=== PATIENT | female | born 1945 | race Caucasian/White ===

== ENCOUNTER → 2017-12-17 14:51 | Outpatient (CLI) | payer MEDICARE, OTHER, SELFPAY ==
--- NOTE | 2017-12-17 | DI.RAD.S_ITS ---
PROCEDURE: XR KNEE RT 3V INDICATIONS: RIGHT KNEE PAIN TECHNIQUE: 3 views of the knee were acquired. COMPARISON: [facility], , KNEE 3V LEFT, 12/28/2016, 11:01. FINDINGS: Bones: No fractures or dislocations. No suspicious bony lesions. Previous right ACL reconstruction. Soft tissues: No joint effusion. No suspicious soft tissue calcifications. IMPRESSION: No acute fractures or dislocations. Previous right ACL reconstruction. Dictated by: Felice Raya M.D. on 12/17/2017 at 15:17 Approved by: Felice Raya M.D. on 12/17/2017 at 15:18
== END ==
PROVIDERS: PCP Physician Assistant; Visit Provider Physician Assistant
DX: M25.561 Pain in right knee (principal)
CPT/HCPCS: 73562

== ENCOUNTER → 2018-01-20 13:58 | Outpatient (CLI) | payer MEDICARE, OTHER, SELFPAY ==
--- NOTE | 2018-01-20 | DI.US.S_ITS ---
PROCEDURE: US THYROID INDICATIONS: THYROID NODULES TECHNIQUE: Real-time scanning was performed of the thyroid gland, with image documentation. COMPARISON: [facility], US, THYROID, 12/02/2016, 8:37. FINDINGS: Right: Thyroid lobe measures 4.2 x 1.3 x 1.3 cm, and is homogeneous in echotexture. Left: Thyroid lobe measures 4.0 x 1.6 x 1.2 cm, and is homogenous in echotexture. Isthmus: 3.0 mm thick. Nodule number: 1 Location: Left inferior Size: Unchanged at 0.8 x 0.5 x 0.4 cm. Composition: Solid Echogenicity: Hypoechoic Shape: wider than tall. Margins: Smooth Echogenic foci: Internal echogenic punctate foci. Total points: 7 ACR TI-RADS category: Highly suspicious Nodule number: 2 Location: Right inferior Size: Unchanged at 0.8 x 0.5 x 0.7 cm. Composition: Solid Echogenicity: Hypoechoic Shape: wider than tall. Margins: Smooth Echogenic foci: Internal echogenic punctate foci Total points: 7 ACR TI-RADS category: Highly suspicious IMPRESSION: Stable subcentimeter highly suspicious nodules. Fine needle aspiration is not.recommended at this time given the small size, although followup ultrasound is recommended as below. ACR TI-RADS definitions and recommendations: TI-RADS 1 (benign): 0 points. FNA not needed. TI-RADS 2 (not suspicious): 2 points. FNA not needed. TI-RADS 3 (mildly suspicious): 3 points. * FNA if 2.5 cm or larger, follow up if 1.5 cm or larger (at 1, 3, and 5 years). TI-RADS 4 (moderately suspicious): 4-6 points. * FNA if 1.5 cm or larger, follow up if 1 cm or larger (at 1, 2, 3, and 5 years). TI-RADS 5 (highly suspicious): 7 points or more. * FNA if 1 cm or larger, follow up if 0.5 cm or larger (every year for 5 years). Dictated by: Issa Silveira A Interpreted: Clare Looney MD on 01/20/2018 at 15:19 Approved by: Clare Looney MD, PhD on 01/20/2018 at 16:09
== END ==
PROVIDERS: PCP Physician Assistant; Visit Provider Physician Assistant
DX: E04.2 Nontoxic multinodular goiter (principal)
CPT/HCPCS: 76536

== ENCOUNTER → 2018-02-04 14:16 | Outpatient (CLI) | payer MEDICARE, OTHER, SELFPAY ==
--- NOTE | 2018-02-04 | DI.RAD.S_ITS ---
PROCEDURE: XR KNEE LT 3V INDICATIONS: PAIN IN LEFT KNEE TECHNIQUE: 3 views of the knee were acquired. COMPARISON: [facility], CR, XR KNEE RT 3V, 12/17/2017, 14:32. [facility], CR, KNEE 3V LEFT, 12/28/2016, 11:01. FINDINGS: Bones: No fractures or dislocations. No suspicious bony lesions. There is mild thinning of the medial compartment joint interspace, similar to that present previously on the right. Soft tissues: No effusion, no intra-articular loose body. IMPRESSION: Normal alignment, mild thinning of the joint width at the medial compartment. No effusion or trauma found. Dictated by: Markus Matias M.D. on 02/04/2018 at 15:18 Approved by: Markus Matias M.D. on 02/04/2018 at 15:19
== END ==
PROVIDERS: PCP Physician Assistant; Visit Provider Physician Assistant
DX: M25.562 Pain in left knee (principal)
CPT/HCPCS: 73562

== ENCOUNTER → 2018-02-19 13:05 | Outpatient (CLI) | payer MEDICARE, OTHER, SELFPAY | PROVIDERS: PCP Physician Assistant; Visit Provider Physician Assistant | DX: M85.851 Other specified disorders of bone density and structure, right thigh (principal); Z78.0 Asymptomatic menopausal state; E07.9 Disorder of thyroid, unspecified; Z82.62 Family history of osteoporosis | CPT/HCPCS: 77080 ==

== ENCOUNTER → 2018-03-12 12:54 | Outpatient (CLI) | payer MEDICARE, OTHER, SELFPAY ==
--- NOTE | 2018-03-12 | DI.MRI.S_ITS ---
PROCEDURE: MR KNEE LT WO CON INDICATIONS: INTERNAL DERANGEMENT OF LEFT KNEE TECHNIQUE: Noncontrast sagittal PD fast spin echo and T2 fast spin echo with fat saturation, sagittal 3-D FLASH with fat saturation; coronal T1 spin echo and PD fast spin echo with fat saturation, and axial PD fast spin echo with fat saturation through the knee. COMPARISON: None. FINDINGS: Image quality: Excellent. Menisci: Undersurface tear involving the body of the medial meniscus. The lateral meniscus appears intact Cruciate ligaments: The anterior and posterior cruciate ligaments appear intact. There are small adjacent periligamentous presumed ganglion cyst within the posterior aspect of the intercondylar notch Medial structures: The medial collateral ligament appears intact. The posterior oblique ligament, semimembranosus tendon insertions, oblique popliteal ligament, and meniscocapsular junction appear intact. Visualized portions of the pes anserinus tendons appear normal. No abnormal bursal fluid. Lateral structures: The lateral collateral ligament, long and short heads of the biceps femoris tendon appear intact. The popliteus tendon appears normal; the popliteofibular ligament appears intact. There is fluid in or adjacent to the popliteus bursa. The posterosuperior and anteroinferior popliteomeniscal fascicles appear intact. The arcuate and fabellofibular ligaments appear intact, on either side of the lateral inferior geniculate artery. Iliotibial band appears normal. Anterior structures: Mild thickening and intrasubstance signal change involving the distal quadriceps and proximal patellar tendons in keeping with low-grade tendinopathy. Patellar alignment is normal. No femoral trochlear dysplasia or ventral trochlear prominence. No edema in the infrapatellar fat pad. Bones and cartilage: No bone marrow contusions or fractures. Within the medial compartment, diffuse partial-thickness loss of the femoral cartilage and to a lesser extent the tibial cartilage. In the lateral compartment, intrasubstance signal change involving the central weightbearing tibial cartilage. Within the patellofemoral compartment, there is low-grade partial-thickness loss and surface fraying of the patellar cartilage. The femoral trochlear articular cartilage appears grossly preserved Joint space: There is physiologic knee joint fluid. No Horn's cyst. Multiloculated ganglion cyst involving the origin of the lateral gastrocnemius on image 21 series 9. IMPRESSION: Medial meniscus tear involving the body. Degenerative joint disease as above. Proximal patellar tendinopathy. Distal quadriceps tendinopathy. Scattered small subcentimeter resumed a ganglion cyst within the posterior aspect of the intercondylar notch. Prominent fluid within the deep infrapatellar bursa raising possibility of bursitis Dictated by: Toan Quach M.D. on 03/12/2018 at 14:42 Approved by: Toan Quach M.D. on 03/12/2018 at 14:51
== END ==
PROVIDERS: PCP Physician Assistant; Visit Provider Orthopaedic Surgery
DX: S83.242A Other tear of medial meniscus, current injury, left knee, initial encounter (principal); M17.12 Unilateral primary osteoarthritis, left knee; M67.462 Ganglion, left knee
CPT/HCPCS: 73721

== ENCOUNTER → 2018-09-09 12:55 | Outpatient (CLI) | payer MEDICARE, OTHER, SELFPAY ==
--- NOTE | 2018-09-09 | DI.RAD.S_ITS ---
PROCEDURE: XR CHEST 2V INDICATIONS: COUGH TECHNIQUE: 2 views of the chest were acquired. COMPARISON: [facility], , CHEST 2 VIEW, 07/22/2012, 10:04. FINDINGS: Surgical changes and devices: None. Lungs and pleura: Lungs are clear. No pleural effusions or pneumothorax. Mediastinum: Mediastinal contours are normal. Heart size is normal. Bones and chest wall: No suspicious bony abnormalities. Soft tissues appear unremarkable. IMPRESSION: Normal for age, source of current cough go symptoms is not seen. Dictated by: Markus Matias M.D. on 09/09/2018 at 13:47 Approved by: Markus Matias M.D. on 09/09/2018 at 13:47
== END ==
PROVIDERS: PCP Internal Medicine; Visit Provider Internal Medicine
DX: R05 Cough (principal)
CPT/HCPCS: 71046

== ENCOUNTER → 2018-12-28 15:57 | Outpatient (CLI) | payer MEDICARE, OTHER, SELFPAY ==
--- NOTE | 2018-12-28 | DI.MRI.S_ITS ---
PROCEDURE: MR ABDOMEN WO/W CON INDICATIONS: CYSTIC MASS OF PANCREAS TECHNIQUE: Coronal HASTE, axial 2D FLASH in- and [id number]; axial breath-hold T2 FSE with fat saturation from the hepatic dome to the iliac crests. Oblique coronal thin-slice and radial thick slab HASTE through the biliary system. Dynamic axial VIBE during administration of contrast. Post-contrast coronal VIBE or 2D FLASH with fat saturation from the hepatic dome to the iliac crests. Optional diffusion weighted imaging and ADC may be performed. COMPARISON: [facility], CT, CT ABDOMEN PELVIS WITH CONTRAST, 12/13/2018, 20:42. FINDINGS: Image quality: There is mild motion artifact. Pancreas and biliary system: Within the tail of the pancreas, there is a small thin-walled cystic lesion measuring up to 0.6 cm. There is no definite corresponding enhancement following contrast administration. There is a small linear cystic structure within the uncinate process adjacent to the pancreatic duct measuring approximately 0.6 cm in length by 0.2 cm in width. The main pancreatic duct is normal in caliber. No peripancreatic fat stranding or fluid collections no discrete pancreatic mass identified. Solid organs: There are multiple scattered hepatic cysts, the largest measuring up to 2.5 cm. No suspicious hepatic mass lesions. There is biliary sludge in the gallbladder without discrete gallstones or gallbladder wall thickening. No intrahepatic biliary ductal dilatation. The extrahepatic duct is at the upper limits of normal measuring up to 7 mm. No filling defects in the common bile duct to suggest choledocholithiasis. Spleen is normal in size and enhancement. No adrenal nodules. Kidneys demonstrate no hydronephrosis. There are bilateral renal cysts demonstrated including parapelvic cysts on the left. Nodes and vessels: No retroperitoneal or mesenteric adenopathy by size criteria. Aorta and inferior vena cava are normal in size. Bowel and peritoneum: Visualized bowel loops are normal in caliber throughout. No free fluid. Lung bases: No basal pleural effusions. Heart size is borderline enlarged. Bones and soft tissues: No ventral hernias. Bone marrow is normal in overall signal. IMPRESSION: 1. Small cystic lesion within the tail of the pancreas measuring up to 0.6 cm and demonstrates no solid internal components or suspicious internal enhancement. 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 A followup study may be performed in 12 months to demonstrate stability if clinically indicated. 2. Small linear cystic lesion in the uncinate process of the pancreas suggestive of a sidebranch IPMN. Followup is also recommended in 12 months to demonstrate stability. 3. Multiple hepatic cysts. 4. Biliary sludge in the gallbladder without evidence of gallstones. Dictated by: Ramesh Ledbetter M.D. on 12/29/2018 at 11:24 Approved by: Ramesh Ledbetter M.D. on 12/29/2018 at 12:06
== END ==
PROVIDERS: PCP Internal Medicine; Visit Provider Internal Medicine
DX: K86.2 Cyst of pancreas (principal); K76.89 Other specified diseases of liver
CPT/HCPCS: 74183; A9579

== ENCOUNTER → 2019-10-01 15:10 | Outpatient (CLI) | payer MEDICARE, OTHER, SELFPAY ==
[2019-10-01 15:33] LABS: RBC Urine None Seen (0-5/HPF)
[2019-10-01 16:34] LABS: Hematocrit 39.6 % (36-46); Hemoglobin 12.9 g/dL (12.0-16.0); Mean Corpuscular HGB Conc 32.6 % (30-36); Mean Corpuscular Hemoglobin 29.3 PG (26-34); Mean Corpuscular Volume 90.1 fL (80-100); Platelet Count 264 X10^3/uL (150-400); Red Blood Cell Count 4.39 X10^6/uL (4.0-5.2); Red Cell Distribution Width 14.4 % (11.6-14.8); White Blood Cell Count 6.4 X10^3/uL (4.5-11.0)
[2019-10-01 16:48] LABS: Alanine Aminotransferase 15 IU/L (<35); Albumin 4.6 g/dL (3.5-5.0); Albumin Globulin Ratio 1.6 (1.0-2.8); Alkaline Phosphatase 63 U/L (38-126); Aspartate Aminotransferase 25 IU/L (14-36); BUN Creatinine Ratio 31.9 (6-22); Bilirubin Total 0.3 mg/dL (0.2-1.3); Blood Urea Nitrogen 22 mg/dL (7-17); Carbon Dioxide 27 mmol/L (22-32); Chloride 105 mmol/L (98-107); Estimated Glomerular Filt Rate > 60.0 mL/min (>60); Globulin 2.9 g/dL (1.7-4.1); Glucose 91 mg/dL (80-110); HEMOLYSIS < 15 (0-50); Potassium 3.7 mmol/L (3.4-5.1); Sodium 140 mmol/L (137-145); Total Protein 7.5 g/dL (6.3-8.2)
[2019-10-01 17:08] LABS: Bilirubin Urine UA NEGATIVE (NEGATIVE); Color Urine UA YELLOW; Glucose Urine UA NEGATIVE (Negative); Ketones Urine UA NEGATIVE (NEGATIVE); Leukocyte Esterase Urine UA 1+ (NEGATIVE); Nitrite Urine UA NEGATIVE (Negative); Occult Blood Urine UA NEGATIVE (Negative); Protein Urine UA NEGATIVE (Negative); Urobilinogen Urine UA 0.2 E.U./dL (0.2)
[2019-10-01 17:12] LABS: Neutrophils Absolute Manual 4608 /uL (3000-5900); RBC Morphology Normal Morphology; Total Cells Counted 100
[2019-10-01 17:13] LABS: Appearance Urine UA Slightly Cloudy; pH Urine UA 5.5 (4.5-8.0)
[2019-10-01 17:21] LABS: Ferritin 15 ng/mL (11-264)
[2019-10-01 17:22] LABS: Bacteria Urine Occasional (0-1); Culture Indicated Urine Specimen Cultured; Squamous Epithelial Cell Urine 0-1 /HPF (0-5/HPF); WBC Urine 5-10/HPF (0-5/HPF)
[2019-10-01 17:36] LABS: TSH w/ Reflex to FT4 0.92 uIU/mL (0.47-4.68)
== END ==
PROVIDERS: PCP Internal Medicine; Referring Provider Internal Medicine; Visit Provider Internal Medicine
DX: Z86.2 Personal history of diseases of the blood and blood-forming organs and certain disorders involving the immune mechanism (principal); E03.9 Hypothyroidism, unspecified; I10 Essential (primary) hypertension
CPT/HCPCS: 36415; 80053; 81001; 82728; 84443; 85025; 85045; 87086

== ENCOUNTER → 2019-10-11 13:07 | Outpatient (CLI) | payer MEDICARE, OTHER, SELFPAY ==
--- NOTE | 2019-10-11 | DI.MRI.S_ITS ---
PROCEDURE: MR LUMBAR SPINE WO CON INDICATIONS: Lumbago with sciatica, right side TECHNIQUE: Noncontrast sagittal T1 spin echo and T2 fast echo, sagittal STIR, axial T1 and T2 fast spin echo through the lumbar spine. In cases with scoliosis, additional coronal T2 fast spin echo may be performed. COMPARISON: [facility] [place], CR, XR LUMBAR SPINE 2 OR 3 VIEWS, 10/07/2019, 11:37. FINDINGS: Image quality: Excellent. Alignment and Curvature: Trace degenerative anterolisthesis of L4 on L5. Trace degenerative retrolisthesis of L1 on L2. Very minimal degenerative levocurvature centered at L2-L3. He Bone Marrow: Marrow is of normal overall signal. No acute vertebral body compression fractures. Spinal Cord: Conus medullaris terminates at the L1-L2 level. Visualized cord demonstrates normal signal and size. Paraspinous Soft Tissues: No paravertebral masses. T12-L1: Mild disc height loss. Mild disc bulge. Mild facet hypertrophy. No canal stenosis. Moderate bilateral foraminal narrowing with flattening deformity of the exiting bilateral T12 nerve roots. L1-L2: Mild disc height loss. Mild disc bulge. Facet ligament hypertrophy. Mild canal stenosis. Moderate right foraminal narrowing with flattening deformity on the exiting right L1 nerve root. Mild left foraminal narrowing. L2-L3: Mild disc height loss. Mild disc bulge. Facet and ligament hypertrophy to, prominent on the right.. Mild canal stenosis. Mild to moderate right foraminal narrowing with mild flattening deformity on the exiting right L2 nerve root. L3-L4: Mild disc bulge. Facet and ligament hypertrophy. Mild to moderate canal stenosis. Moderate right foraminal narrowing and mild to moderate left foraminal narrowing with flattening deformity of the exiting bilateral L3 nerve roots. L4-L5: This disc bulge. Mild anterolisthesis of L4 on L5. Bilateral prominent facet hypertrophy, right greater than left. Mild canal stenosis. Mild to moderate bilateral foraminal narrowing with flattening deformity on the exiting bilateral L4 nerve roots. L5-S1: Chronic disc height loss. Mild disc bulge. Facet and ligament hypertrophy. Mild canal stenosis. Mild to moderate right foraminal narrowing and moderate left foraminal narrowing with flattening deformity of the exiting bilateral L5 nerve roots. IMPRESSION: 1. Diffuse degenerative change. Multilevel prominent facet arthropathy. 2. Multilevel, multifactorial canal stenosis, mild at L1-L2 and L2-L3, mild to moderate at L3-L4, and mild at L4-L5 and L5-S1. 3. Multilevel foraminal narrowing as described above. Dictated by: Jaylan Sales M.D. on 10/12/2019 at 8:48 Approved by: Jaylan Sales M.D. on 10/12/2019 at 9:12
== END ==
PROVIDERS: PCP Internal Medicine; Referring Provider Internal Medicine; Visit Provider Orthopaedic Surgery
DX: M54.41 Lumbago with sciatica, right side (principal); M47.816 Spondylosis without myelopathy or radiculopathy, lumbar region; M47.817 Spondylosis without myelopathy or radiculopathy, lumbosacral region; M48.061 Spinal stenosis, lumbar region without neurogenic claudication; M48.07 Spinal stenosis, lumbosacral region
CPT/HCPCS: 72148

== ENCOUNTER → 2020-12-18 14:42 | Outpatient (CLI) | payer MEDICARE, OTHER, SELFPAY ==
--- NOTE | 2020-12-18 14:46 | DI.US.S_ITS ---
PROCEDURE: US THYROID INDICATIONS: THYROID NODULE TECHNIQUE: Real-time scanning was performed of the thyroid gland, with image documentation. COMPARISON: [facility], US, US THYROID, 01/20/2018, 14:44. FINDINGS: Right: Thyroid lobe measures 4.7 x 1.3 x 1.4 cm, and is diffusely heterogeneous in echotexture. Left: Thyroid lobe measures 4.2 x 1.2 x 1.2 cm, and is diffusely heterogeneous in echotexture. Isthmus: 2.1 mm thick. Nodule number: 1 Location: Right inferior posterior Size: 0.6 x 0.4 x 0.3 cm. Composition: Predominantly solid Echogenicity: Hypoechoic Shape: wider than tall. Margins: Smooth Echogenic foci: None Total points: 4 ACR TI-RADS category: Moderately suspicious Nodule number: 2 Location: Right inferior anterior Size: Stable at 0.9 x 0.6 x 0.6 cm. Composition: Predominantly solid Echogenicity: Predominantly isoechoic Shape: wider than tall. Margins: Smooth Echogenic foci: None Total points: 3 ACR TI-RADS category: Mildly suspicious Nodule number: 3 Location: Left inferior medial Size: 0.5 x 0.4 x 0.2 cm. Composition: Complex cystic and solid Echogenicity: Hypoechoic Shape: wider than tall. Margins: Smooth Echogenic foci: None Total points: 3 ACR TI-RADS category: Mildly suspicious Nodule number: 4 Location: Left inferior to mid Size: Stable at 0.7 x 0.7 x 0.4 cm. Composition: Predominantly solid Echogenicity: Predominantly hypoechoic Shape: wider than tall. Margins: Smooth Echogenic foci: Internal echogenic punctate foci Total points: 7 ACR TI-RADS category: Highly suspicious IMPRESSION: 2 new sub cm thyroid nodules and otherwise stable appearance of the previously visualized nodules. Recommend continued followup ultrasound as detailed below. ACR TI-RADS definitions and recommendations: TI-RADS 1 (benign): 0 points. FNA not needed. TI-RADS 2 (not suspicious): 2 points. FNA not needed. TI-RADS 3 (mildly suspicious): 3 points. * FNA if 2.5 cm or larger, follow up if 1.5 cm or larger (at 1, 3, and 5 years). TI-RADS 4 (moderately suspicious): 4-6 points. * FNA if 1.5 cm or larger, follow up if 1 cm or larger (at 1, 2, 3, and 5 years). TI-RADS 5 (highly suspicious): 7 points or more. * FNA if 1 cm or larger, follow up if 0.5 cm or larger (every year for 5 years). Dictated by: Issa Silveira RRA Interpreted: Rory Rose MD on 12/19/2020 at 9:24 Transcribed by: MERRILL on 12/19/2020 at 9:30 Approved by: Navin Rose M.D. on 12/26/2020 at 11:19
== END ==
PROVIDERS: PCP Internal Medicine; Referring Provider Internal Medicine; Visit Provider Internal Medicine
DX: E04.2 Nontoxic multinodular goiter (principal)
CPT/HCPCS: 76536

== ENCOUNTER 2021-01-26 10:05 | Emergency (ER) | payer MEDICARE, OTHER, SELFPAY ==
[2021-01-26 11:14] VITALS: BP 145/70; PULSE 69; RESP 16; TEMP 36.6; O2SAT 97; BMI 25.0
--- NOTE | 2021-01-26 12:10 | ED.EXTPRO ---
HPI - Extremity Problem <Issa Costa PA-C - Last Filed: 01/26/21 19:28> General Chief complaint: Extremity Problem,Nontraumatic Stated complaint: possible blood clot/sent by [facility] Time Seen by Provider: 01/26/21 12:06 Source: patient Mode of arrival: Ambulatory Limitations: no limitations History of Present Illness HPI Narrative: Alice presents today with chief complaint of left leg pain that has waxed and waned over the last week. Her primary concern is for a blood clot. She reports that she plays pickleball and is able to play few matches without any significant difficulty. However, if she goes for her regular 3 mi walk she starts to have discomfort on her anterior thigh. She states that her had a blood clot a few years ago and she is concerned that she may have 1 now. Her pain started about 1 week ago when she was bending her leg after a pickle ball game. She had sharp pain near her knee and had difficulty straightening her leg. She reports that she laid down for about 2 hours and the pain went away. Few days later she had pain on her anterior thigh after some exertion. This gets better with rest. She denies any recent surgery, prolonged immobilization, history of cancer, recent hospitalization, history of blood clots, leg swelling, skin changes or any other acute concerns or complaints at this time. Related Data Home Medications Medication Instructions Recorded Confirmed thyroid (pork) 60 mg tablet 60 mg PO QDAY #0 12/28/16 ([place] Thyroid) cholecalciferol (vitamin D3) 125 5,000 unit PO QDAY #0 08/12/17 mcg (5,000 unit) capsule cyanocobalamin (vitamin B-12) 1,000 mcg PO QDAY #0 08/12/17 1,000 mcg tablet,extended release cyclobenzaprine 5 mg tablet 5 mg PO Q12HP PRN #0 08/12/17 multivitamin (Multiple Vitamins) 1 tab PO QDAY #0 08/12/17 omeprazole magnesium 20 mg 20 mg PO QDAY #0 08/12/17 tablet,delayed release (Prilosec OTC) vitamin E 400 unit capsule 400 unit PO QDAY #0 08/12/17 Allergies Allergy/AdvReac Type Severity Reaction Status Date / Time Penicillins [PENICILLINS] Allergy Unknown Verified 01/26/21 10:52 Review of Systems <Issa Costa PA-C - Last Filed: 01/26/21 19:28> Review of Systems Narrative: As per HPI Patient History <Issa Costa PA-C - Last Filed: 01/26/21 19:28> Social History Smoking Status: Never smoker Smoking Status: Never smoker alcohol intake frequency: a few times a week Substance Use Type: does not use Exam <Issa Costa PA-C - Last Filed: 01/26/21 19:28> Narrative Exam Narrative: Exam Narrative: Const General: cooperative, healthy appearing, comfortable, no acute distress, well developed and well groomed Nutritional Appearance: average body habitus Orientation: alert and oriented x3 HENMT Head: normal to inspection and atraumatic Ears: hearing grossly normal bilaterally Nose: external nose normal and nares normal Face and sinus: normal facial exam Neck Neck: normal visual inspection and supple Resp Effort & Inspection: normal respiratory effort, able to speak in complete sentences, no audible wheezes, not labored, no nasal flaring and no respiratory distress Neuro General: alert, oriented x3, gait normal, tone normal and moves all extremities Cognition: normal cognition Speech: speech normal Gait: normal gait Extremities Lower extremities are grossly normal. No significant edema, tenderness, decreased range of motion, joint effusion, bruising, or any other acute concerns or complaints at this time. Psych Appearance: grossly normal and well kempt Mental Status: mental status grossly normal Speech and Movement: speech and movement normal Mood: congruent mood Affect: normal affect Initial Vital Signs Initial Vital Signs: Vital Signs Temperature 97.9 F 01/26/21 11:14 Pulse Rate 69 01/26/21 11:14 Respiratory Rate 16 01/26/21 11:14 Blood Pressure 145/70 H 01/26/21 11:14 Pulse Oximetry 97 01/26/21 11:14 <Anika Post DO - Last Filed: 01/31/21 07:30> Initial Vital Signs Initial Vital Signs: Vital Signs Temperature 97.9 F 01/26/21 11:14 Pulse Rate 69 01/26/21 11:14 Respiratory Rate 16 01/26/21 11:14 Blood Pressure 145/70 H 01/26/21 11:14 Pulse Oximetry 97 01/26/21 11:14 Course <Issa Costa PA-C - Last Filed: 01/26/21 19:28> Orders Ordered: ED Orders 01/26/21 12:30 D Dimer Stat Vital Signs Vital signs: Vital Signs - 8 hr 01/26/21 12:36 01/26/21 13:00 01/26/21 13:01 Pulse Rate 70 73 71 Blood Pressure 148/78 H 162/75 H Pulse Oximetry 97 95 96 <Anika Post DO - Last Filed: 01/31/21 07:30> Orders Ordered: ED Orders 01/26/21 12:30 D Dimer Stat Vital Signs Vital signs: Vital Signs - 8 hr 01/26/21 12:36 01/26/21 13:00 01/26/21 13:01 Pulse Rate 70 73 71 Blood Pressure 148/78 H 162/75 H Pulse Oximetry 97 95 96 MDM - Extremity (Nontraumatic) <Issa Costa PA-C - Last Filed: 01/26/21 19:28> Lab Data Labs: Lab Results 01/26/21 Range/Units 12:30 D-Dimer < 200 (<230) ng/mL MDM Narrative Medical decision making narrative: Patients physical examination is reassuring at this time. She does not have any significant reproducible symptoms. She has a normal D-Dimer. I suspect that this is a muscle strain and recommend that we treat it as such. Strict ED return precautions discussed with the patient and her . They verbalized understanding and agreement to the plan and have no further concerns at this time. <Anika Post DO - Last Filed: 01/31/21 07:30> Lab Data Labs: Lab Results 01/26/21 Range/Units 12:30 D-Dimer < 200 (<230) ng/mL Discharge Plan Departure Patient Disposition: Home Clinical Impression: Leg pain Qualifiers: Laterality: left Qualified Code(s): M79.605 - Pain in left leg Activity Restrictions/Additional Instructions: It was very nice to meet you this afternoon. Your evaluation today has been reassuring. I suspect that your leg pain is due to muscle strain. Recommend doing a regular stretching routine to augment your other exercises that you do. If your discomfort continues to occur, please follow-up with your PCP or return here for re-evaluation. Thank you Issa Costa PA-C Prescriptions: No Action thyroid (pork) [[place] Thyroid] 60 MG tablet 60 mg PO QDAY Qty: 0 RF: 0 cyclobenzaprine 5 MG tablet 5 mg PO Q12HP PRNQty: 0 RF: 0 multivitamin [Multiple Vitamins] 1 EACH tablet 1 tab PO QDAY Qty: 0 RF: 0 omeprazole magnesium [Prilosec OTC] 20 MG tablet,delayed release (DR/EC) 20 mg PO QDAY Qty: 0 RF: 0 cyanocobalamin (vitamin B-12) 1,000 MCG tablet extended release 1,000 mcg PO QDAY Qty: 0 RF: 0 cholecalciferol (vitamin D3) 5,000 UNIT capsule 5,000 unit PO QDAY Qty: 0 RF: 0 vitamin E 400 UNIT capsule 400 unit PO QDAY Qty: 0 RF: 0 Referrals: Papo Mead MD [Primary Care Provider] - <Anika Post DO - Last Filed: 01/31/21 07:30> Cosign ED Attending Cosignature Attestation: I was immediately available in the department for consultation. Documentation has been reviewed.
[2021-01-26 12:36] VITALS: BP 148/78; PULSE 70; O2SAT 97
[2021-01-26 12:47] LABS: D Dimer < 200 ng/mL (<230)
[2021-01-26 13:00] VITALS: PULSE 73; O2SAT 95
[2021-01-26 13:01] VITALS: BP 162/75; PULSE 71; O2SAT 96
== END 2021-01-26 13:09 | disposition home or self-care (01) ==
PROVIDERS: Emergency Provider Physician Assistant; PCP Internal Medicine
DX: M79.605 Pain in left leg (principal)
CPT/HCPCS: 36415; 85379; 99283

== ENCOUNTER 2023-12-05 05:28 | Emergency (ER) | payer MEDICARE, OTHER, SELFPAY ==
[2023-12-05] VITALS (7 sets, daily range): BP systolic 131–184; BP diastolic 63–79; PULSE 67–93; RESP 16–95; TEMP 36.6; O2SAT 92–96; BMI 25.7
--- NOTE | 2023-12-05 06:20 | ED_ITS ---
HPI - URI/Sore Throat General Chief Complaint: Upper Respiratory Symptoms Stated Complaint: green stuff in nose she cant get rid of Time Seen by Provider: 12/05/23 06:02 Source: patient Mode of arrival: Ambulatory History of Present Illness HPI Narrative: Patient is a 70-year-old female history of hypertension hypothyroid presenting today with upper respiratory like symptoms. She reports she has had extreme fatigue and tiredness ongoing for about 1 week she had a mild sore throat but that has gone. She now complains of significant nasal drainage that she reports is green. She denies any sort of fever. She has been taking Mucinex and Tessalon Perles along with DayQuil NyQuil seems to be helping. Although at registration she had a coughing fit. Related Data Home Medications Medication Instructions Recorded Confirmed thyroid (pork) 60 mg tablet 60 mg PO QDAY ##0 12/28/16 ([place] Thyroid) cholecalciferol (vitamin D3) 125 5,000 unit PO QDAY ##0 08/12/17 mcg (5,000 unit) capsule cyanocobalamin (vitamin B-12) 1,000 mcg PO QDAY ##0 08/12/17 1,000 mcg tablet,extended release cyclobenzaprine 5 mg tablet 5 mg PO Q12HP PRN ##0 08/12/17 multivitamin (Multiple Vitamins 1 tab PO QDAY ##0 08/12/17 tablet) omeprazole magnesium 20 mg 20 mg PO QDAY ##0 08/12/17 tablet,delayed release (Prilosec OTC) vitamin E 268 mg (400 unit) capsule 400 unit PO QDAY ##0 08/12/17 Allergies Allergy/AdvReac Type Severity Reaction Status Date / Time Penicillins [PENICILLINS] Allergy Unknown Verified 01/26/21 10:52 Patient History Medical History Hearing loss Allergies Depression Whooping cough (~2006) Mumps Chicken pox Tinnitus Fibroids Ulcer (~2017) Colon polyps Hyperthyroidism (~2004) Hypertension (~2009) Surgical History Anesthesia History of knee surgery (~2000) History of hysterectomy (~1989) Family History Father Drowned Mother Cancer Hypertension Brother History of heart disease Grandfather History of heart disease Social History Smoking Status: Never smoker Smoking Status: Never smoker alcohol intake frequency: a few times a week Substance Use Type: does not use Exam Initial Vital Signs Initial Vital Signs: Vital Signs Pulse Rate 93 H 12/05/23 05:35 Respiratory Rate 95 H 12/05/23 05:35 Blood Pressure 184/79 H 12/05/23 05:35 Oxygen Delivery Method Room Air 12/05/23 05:35 GENERAL: Patient is a 78-year-old female HEENT: Head atraumatic,EOMI, pupils reactive, face symmetric, moist mucous membranes PHARYNX: No significant erythema swelling or drainage CARDIOVASCULAR: Regular rate and rhythm without murmurs, rubs or gallops. RESPIRATORY: Breath sounds equal bilaterally, no wheezes rales or rhonchi. EXTREMITIES: Normal range of motion, no clubbing or edema. Neurovascularly intact NEUROLOGICAL: Alert and oriented x4.Normal gait and speech. SKIN: Warm, dry, no laceration, no petechiae, no rashes or lesions. Course Orders Ordered: ED Orders 12/05/23 05:38 Respiratory Panel (Film Array) Stat Vital Signs Vital signs: Vital Signs - 8 hr 12/05/23 05:35 12/05/23 05:41 12/05/23 06:40 Temperature 97.8 F Pulse Rate 93 H 91 H 78 Respiratory Rate 95 H 16 Blood Pressure 184/79 H 184/79 H Pulse Oximetry 96 95 Oxygen Delivery Method Room Air Room Air 12/05/23 06:56 12/05/23 06:57 12/05/23 07:00 Temperature Pulse Rate 76 74 Respiratory Rate 18 18 Blood Pressure 131/66 131/63 137/65 Pulse Oximetry 92 93 Oxygen Delivery Method Room Air 12/05/23 07:00 12/05/23 07:30 12/05/23 07:30 Temperature Pulse Rate 67 82 Respiratory Rate Blood Pressure 133/64 Pulse Oximetry 92 94 Oxygen Delivery Method MDM - URI/Sore Throat Lab Data Labs: Lab Results 12/05/23 Range/Units 05:38 Chlamy pneumoniae PCR Not detected (Not Detect) Adenovirus (PCR) Not detected (Not Detect) B.parapertussis DNA PCR Not detected (Not Detecte) Coronavirus OC43 (PCR) Not detected (Not Detect) Coronavirus HKU1 (PCR) Not detected (Not Detect) Coronavirus 229E (PCR) Not detected (Not Detect) SARS-CoV-2 (PCR) Not detected (Not Detecte) Coronavirus NL63 (PCR) Not detected (Not Detect) Human Metapneumovir PCR Not detected (Not Detect) Influenza Type A (PCR) Not detected (Not Detect) Influenza Type B (PCR) Not detected (Not Detect) M. pneumoniae (PCR) Not detected (Not Detect) Parainfluenza 1 (PCR) Not detected (Not Detect) Parainfluenza 2 (PCR) Not detected (Not Detect) Parainfluenza 3 (PCR) Not detected (Not Detect) Parainfluenza 4 (PCR) Not detected (Not Detect) RSV (PCR) Not detected (Not Detect) Entero/Rhino (PCR) Detected H (Not Detect) MDM Narrative Medical decision making narrative: Patient is 78-year-old female presenting today with upper respiratory like symptoms ongoing for couple of days. She overall appears well does not meet sepsis criteria. Respiratory panel pending Patient signed out to Dr. Post Discharge Plan Departure Patient Disposition: Home Clinical Impression: Upper respiratory infection Activity Restrictions/Additional Instructions: You have tested positive for entero/rhinovirus. This is a viral illness typically take 7-10 days to resolve. You can take [id number] medications as needed. Please return for new chest pain or shortness of breath, lightheadedness or passing out, persistent vomiting, new swelling of your extremities or other new or concerning changes. Prescriptions: No Action thyroid (pork) [[place] Thyroid] 60 MG tablet 60 mg PO QDAY Qty: 0 cyclobenzaprine 5 MG tablet 5 mg PO Q12HP PRNQty: 0 multivitamin [Multiple Vitamins] 1 EACH tablet 1 tab PO QDAY Qty: 0 omeprazole magnesium [Prilosec OTC] 20 MG tablet,delayed release (DR/EC) 20 mg PO QDAY Qty: 0 cyanocobalamin (vitamin B-12) 1,000 MCG tablet extended release 1,000 mcg PO QDAY Qty: 0 cholecalciferol (vitamin D3) 5,000 UNIT capsule 5,000 unit PO QDAY Qty: 0 vitamin E 400 UNIT capsule 400 unit PO QDAY Qty: 0 Referrals: Papo Mead MD [Primary Care Provider] - Stand Alone Forms: Patient Portal/API
[2023-12-05 07:01] LABS: Adenovirus Not Detected (Not Detect); B. parapertussis Not Detected (Not Detecte); Bordetella pertussis Not Detected (Not Detect); Chlamydophila pneumoniae Not Detected (Not Detect); Coronavirus 229E Not Detected (Not Detect); Coronavirus HKU1 Not Detected (Not Detect); Coronavirus NL 63 Not Detected (Not Detect); Coronavirus OC43 Not Detected (Not Detect); Human Metapneumovirus Not Detected (Not Detect); Human Rhinovirus/Enterovirus Detected (Not Detect); Influenza A Not Detected (Not Detect); Influenza B Not Detected (Not Detect); Mycoplasma pneumoniae Not Detected (Not Detect); Parainfluenza Virus 1 Not Detected (Not Detect); Parainfluenza Virus 2 Not Detected (Not Detect); Parainfluenza Virus 3 Not Detected (Not Detect); Parainfluenza Virus 4 Not Detected (Not Detect); Respiratory Syncytial Virus Not Detected (Not Detect); SARS- CoV-2 Not Detected (Not Detecte)
--- NOTE | 2023-12-05 07:37 | PC.NURSE ---
Pt states she is having a difficulty time coughing up sputum; pt was concerned she might need antibiotics.
--- NOTE | 2023-12-05 07:46 | PC.NURSE ---
Refusal of urine sample from the pt.
== END 2023-12-05 07:53 | disposition home or self-care (01) ==
PROVIDERS: Emergency Medicine; Emergency Provider Emergency Medicine; PCP Internal Medicine
DX: J06.9 Acute upper respiratory infection, unspecified (principal)
CPT/HCPCS: 87633; 99281; 99282

== ENCOUNTER → 2024-11-30 15:26 | Outpatient (CLI) | payer MEDICARE, OTHER, SELFPAY ==
[2024-11-30 17:19] LABS: Hematocrit 39.6 % (36-46); Hemoglobin 13.5 g/dL (12.0-16.0); Mean Corpuscular HGB Conc 34.1 % (30-36); Mean Corpuscular Hemoglobin 31.5 PG (26-34); Mean Corpuscular Volume 92.6 fL (80-100); Platelet Count 262 X10^3/uL (150-400)
[2024-11-30 18:27] LABS: Alanine Aminotransferase 17 IU/L (<35); Albumin 4.7 g/dL (3.5-5.0); Albumin Globulin Ratio 2.0 (1.0-2.8); Alkaline Phosphatase 73 U/L (38-126); Blood Urea Nitrogen 23 mg/dL (7-17); Calcium 9.9 mg/dL (8.4-10.2); Carbon Dioxide 27 mmol/L (22-32); Chloride 106 mmol/L (98-107); Cholesterol 229 mg/dL (140-199); Estimated Glomerular Filt Rate > 60 mL/min (>60); Globulin 2.3 g/dL (1.7-4.1); Glucose 83 mg/dL (70-99); HDL Cholesterol 90 mg/dL (40-60); HEMOLYSIS < 15 (0-50); Potassium 4.1 mmol/L (3.4-5.1); Sodium 140 mmol/L (137-145); Total Protein 7.0 g/dL (6.3-8.2); Triglycerides 109 mg/dL (35-150)
[2024-11-30 18:52] LABS: TSH w/ Reflex to FT4 0.90 uIU/mL (0.47-4.68)
[2024-12-02 06:39] LABS: Cancer (Carbohydrate) Ag 19-9 6 U/mL (0-35)
== END ==
PROVIDERS: PCP Internal Medicine; Referring Provider Internal Medicine; Visit Provider Internal Medicine
DX: E04.1 Nontoxic single thyroid nodule (principal); E03.9 Hypothyroidism, unspecified; D49.0 Neoplasm of unspecified behavior of digestive system
CPT/HCPCS: 36415; 80053; 80061; 84443; 85027; 86301

== ENCOUNTER → 2024-12-06 13:43 | Outpatient (CLI) | payer MEDICARE, OTHER, SELFPAY ==
--- NOTE | 2024-12-06 14:00 | EKG_ITS ---
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
[2024-12-06 14:12] LABS: Appearance Urine UA CLEAR; Bilirubin Urine UA NEGATIVE (NEGATIVE); Color Urine UA YELLOW; Glucose Urine UA NEGATIVE (Negative); Ketones Urine UA 1+ (NEGATIVE); Leukocyte Esterase Urine UA 2+ (NEGATIVE); Nitrite Urine UA NEGATIVE (Negative); Occult Blood Urine UA NEGATIVE (Negative); Protein Urine UA NEGATIVE (Negative); Specific Gravity Urine UA 1.015 (1.000-1.035); Urobilinogen Urine UA 0.2 E.U./dL (0.2)
[2024-12-06 14:16] LABS: pH Urine UA 6.0 (4.5-8.0)
[2024-12-06 14:18] LABS: Culture Indicated Urine Specimen Cultured
[2024-12-06 15:15] LABS: Hemoglobin A1C% w Est Avg Glu 5.3 % (4.0-6.0)
[2024-12-06 15:30] LABS: Blood Urea Nitrogen 19 mg/dL (7-17); Calcium 9.7 mg/dL (8.4-10.2); Carbon Dioxide 29 mmol/L (22-32); Chloride 103 mmol/L (98-107); Estimated Glomerular Filt Rate > 60 mL/min (>60); Glucose 98 mg/dL (70-99); HEMOLYSIS < 15 (0-50); Potassium 3.9 mmol/L (3.4-5.1); Sodium 139 mmol/L (137-145)
== END ==
PROVIDERS: PCP Internal Medicine; Referring Provider Orthopaedic Surgery; Visit Provider Orthopaedic Surgery
DX: Z01.812 Encounter for preprocedural laboratory examination (principal); R73.9 Hyperglycemia, unspecified; N39.0 Urinary tract infection, site not specified; Z01.818 Encounter for other preprocedural examination
CPT/HCPCS: 36415; 80048; 81001; 83036; 87077; 87086; 87147; 93005; 93010

== ENCOUNTER → 2024-12-17 12:05 | Outpatient (CLI) | payer MEDICARE, OTHER, SELFPAY ==
--- NOTE | 2024-12-17 12:07 | DI.MRI.S_ITS ---
PROCEDURE: MR AB PANCREATIC/MRCP PROTOCOL INDICATIONS: pancreatic tail IPMN TECHNIQUE: Coronal HASTE through the abdomen, axial 2-D FLASH in- and [id number], and breath-hold T2 FSE with fat saturation through the biliary system and pancreas. Oblique coronal and axial thin-slice HASTE, radial thick-slab HASTE centered on the extrahepatic bile ducts. Intravenous secretin: Not requested. COMPARISON: MR 12/28/2018 FINDINGS: Image quality: Diagnostic. Gallbladder: No gallstones or wall thickening. Biliary ducts: No biliary dilation. Pancreas: Stable cystic lesions in the pancreatic parenchyma, notably the 6 millimeter lesion in the pancreatic tail (series 6, image 5) and the 5 millimeter lesion in the pancreatic head (series 6, image 14). No associated nodularity or ductal dilation. Prominent accessory duct. OTHER: Lung bases: Small hiatal hernia. Liver: No solid mass. Flash filling hemangioma in the central right hepatic lobe measuring 1 centimeter (series 13, image 38). Simple hepatic cysts, including the 3.2 centimeter cyst in segment 4. Spleen: Size is within normal limits. Adrenal Glands: No adrenal nodules. Kidneys and Ureters: No hydronephrosis. No solid mass. No complex renal cystic lesion which requires follow up. Stomach and Bowel: Normal colonic caliber, without significant wall thickening. Peritoneum: No abnormal intraperitoneal fluid. No free air. Ventral Wall: No hernia. Abdominal Nodes: No retroperitoneal or mesenteric adenopathy by size criteria. Vessels: Aorta and inferior vena cava are normal in size. Bones: No aggressive osseous abnormality. 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 Two year follow-up for a total of 10 years as of 2019 is recommended due to the low risk of malignant transformation and pancreatic adenocarcinoma. Dictated by: Jai Boone M.D. on 12/17/2024 at 15:02 Approved by: Jai Boone M.D. on 12/17/2024 at 15:16
--- NOTE | 2024-12-17 12:07 | DI.RAD.S_ITS ---
PROCEDURE: XR DEXA AXIAL SKELETON INDICATIONS: osteopenia COMPARISON: None. FINDINGS: Lumbar Spine: Bone mineral density 1.260 g/cm2, T score 2.1. Left Femoral Neck: Bone mineral density 0.792 g/cm2, T score -0.5. Left Hip: Bone mineral density 0.961 g/cm2, T score 0.2. Fracture Risk Calculation (when applicable): 10-year fracture risk of a major osteoporotic fracture 9.9 percent and of a hip fracture 1.5 percent. (T score greater or equal to -1.0 to: NORMAL) (T score from -1.1 to -2.4: OSTEOPENIA) (T score less than or equal to -2.5: OSTEOPOROSIS) IMPRESSION: Normal--- recommend repeat DEXA as clinically indicated. Follow-up guidelines as follows: Osteoporosis: Consider a repeat DEXA and Vertebral Fracture Assessment (VFA) exam in 2 years or sooner if medically necessary, to reassess this patient's status. Osteopenia: Consider a repeat DEXA in 2-3 years to reassess this patient's status, or if there is a new clinical indication. Normal: Consider a repeat DEXA in 5 years or sooner, or if there is a new clinical indication. All treatment decisions require clinical judgment and consideration of individual patient factors, including patient preferences, comorbidities, previous drug use, risk factors not captured in the FRAX model (e.g., frailty, falls, vitamin D deficiency, increased bone turnover, interval significant decline in bone density ) and possible under- or over-estimation of fracture risk by FRAX. In addition, the NOF Guide recommends that FDA-approved medical therapies be considered in postmenopausal women and men age >= 50 years with a: * Hip or vertebral (clinical or morphometric) fracture * T-score of <=-2.5 at the spine or hip * Ten-year fracture probability by FRAX of >= 3% for hip fracture or >=20% for major osteoporotic fracture. Dictated by: Chetan Cox M.D. on 12/17/2024 at 20:00 Approved by: Chetan Cox M.D. on 12/17/2024 at 20:03
--- NOTE | 2024-12-17 12:07 | DI.US.S_ITS ---
PROCEDURE: US THYROID INDICATIONS: thyroid nodule TECHNIQUE: Real-time scanning was performed of the thyroid gland, with image documentation. COMPARISON: Report of prior study dated 12/18/2020. The images are not available on the PACS. FINDINGS: Thyroid: Right lobe measures 4.4 x 1.3 x 1.3 cm. Left lobe measures 4.5 x 1.6 x 1.3 cm. Isthmus is 0.18 cm thick. Echotexture is mildly heterogeneous. Nodule number: 1 Location: Right lower pole Size: 1 x 0.6 x 1 cm. Composition: Solid Echogenicity: Hypoechoic Shape: wider than tall. Margins: Smooth Echogenic foci: None Total points: 4 ACR TI-RADS category: 4 IMPRESSION: 1. A nodule in the right lower pole appears more prominent compared to the remote prior study but still measures only up to 1 cm. 2. Several nodules on the left remain subcentimeter. ACR TI-RADS definitions and recommendations: TI-RADS 1 (benign): 0 points. FNA not needed. TI-RADS 2 (not suspicious): 2 points. FNA not needed. TI-RADS 3: 3 points. * FNA if 2.5 cm or larger, follow up if 1.5 cm or larger (at 1, 3, and 5 years). TI-RADS 4: 4-6 points. * FNA if 1.5 cm or larger, follow up if 1 cm or larger (at 1, 2, 3, and 5 years). TI-RADS 5: 7 points or more. * FNA if 1 cm or larger, follow up if 0.5 cm or larger (every year for 5 years). Dictated by: Steve House M.D. on 12/18/2024 at 19:17 Approved by: Steve House M.D. on 12/18/2024 at 19:22
== END ==
PROVIDERS: PCP Internal Medicine; Referring Provider Internal Medicine; Visit Provider Internal Medicine
DX: D49.0 Neoplasm of unspecified behavior of digestive system (principal); K44.9 Diaphragmatic hernia without obstruction or gangrene; K76.89 Other specified diseases of liver; E04.1 Nontoxic single thyroid nodule; M85.89 Other specified disorders of bone density and structure, multiple sites
CPT/HCPCS: 74183; 76536; 77080; A9579